=== PATIENT | female | born 1975 | race African-American/Black ===

== ENCOUNTER 2016-06-08 08:33 | Emergency (ER) | payer OTHER ==
[~2016-06-08 08:33] MED LIST: ADVAIR 1001 DISK W/D PO; BENTYL20 MG PO; FLEXERIL PO; IBUPROFEN PO; MEDROL4 MG/DOSE- PO; PHENERGAN PO; TOPAMAX; TYLENOL #3 PO; VOLTAREN75 MG PO
== END 2016-06-08 08:38 | disposition home or self-care (01) ==
LOC: CED 08:33
DX: J01.10 Acute frontal sinusitis, unspecified (principal); I10 Essential (primary) hypertension; G43.909 Migraine, unspecified, not intractable, without status migrainosus; Z98.51 Tubal ligation status
CPT/HCPCS: 99282

== ENCOUNTER 2016-08-16 23:14 | Emergency (ER) | payer OTHER | END 2016-08-16 23:43 | disposition home or self-care (01) | LOC: CED 23:14 | DX: L03.221 Cellulitis of neck (principal); I10 Essential (primary) hypertension | CPT/HCPCS: 99282 ==